=== PATIENT | female | born 1960 | race Caucasian/White ===

== ENCOUNTER 2024-04-10 15:32 | Outpatient (CLI) | payer OTHER, SELFPAY | END 2024-04-10 15:33 | disposition home or self-care (01) | PROVIDERS: PCP Physician Assistant; Visit Provider Internal Medicine | DX: R74.8 Abnormal levels of other serum enzymes (principal) | CPT/HCPCS: 80053; 85610 ==

== ENCOUNTER 2024-04-18 12:20 | Outpatient (CLI) | payer OTHER, SELFPAY ==
--- NOTE | 2024-04-18 13:00 | CRLHL7_ITS ---
For Patients: As a result of the Century Cures Act, medical imaging exams and procedure reports are released immediately into your electronic medical record. You may view this report before your referring provider. If you have questions, please contact your health care provider. Indication: ABD PAIN, ABNORMAL LEVELS OF OTHER SERUM ENZYMES Technique: CT Abdomen/Pelvis w/ 102cc [id number] Please note that all CT scans at this facility use dose modulation, iterative reconstruction, and/or weight-based dosing when appropriate to reduce radiation dose to as low as reasonably achievable. Comparison: 05/25/2009 Findings: Lung bases are clear. No pleural effusion. No intrahepatic mass. Lobular contour of the liver noted. The liver is mildly decreased in echotexture. The spleen is not enlarged. Distended vessels are present in the left upper retroperitoneum. The liver measures 18.5 cm. Normal gallbladder without calcified gallstone or biliary obstruction. Normal pancreas. Small hiatal hernia. A few scattered gastrohepatic ligament lymph nodes are present which are similar to the prior study. Adrenal glands are normal. Normal kidneys. No dilated bowel loops. Bladder normal. No pelvic mass. Postop changes of hysterectomy and bilateral salpingo-oophorectomy. No enlarged lymph nodes. Postop changes along the right iliac chain. Degenerative facet arthropathy lower lumbar spine with slight degenerative anterolisthesis of L4 on L5 and L5 on S1. Impression: Cirrhotic liver appears to be present. There is no ascites. Spontaneous splenorenal shunt is present reflective of portal hypertension.. Postop changes of JOSIAH/BSO. No pelvic mass or adenopathy. Please note that all CT scans at this facility use dose modulation, iterative reconstruction, and/or weight-based dosing when appropriate to reduce radiation dose to as low as reasonably achievable. Dictated by Rick Mckeon MD @ 04/18/2024 2:36:09 PM (Electronically Signed)
== END 2024-04-18 12:21 | disposition home or self-care (01) ==
LOC: CT 12:22
PROVIDERS: PCP Physician Assistant; Visit Provider Internal Medicine
DX: R10.9 Unspecified abdominal pain (principal); K74.60 Unspecified cirrhosis of liver; R74.8 Abnormal levels of other serum enzymes
CPT/HCPCS: 74177; Q9967